=== PATIENT | male | born 1960 | race Caucasian/White ===

== ENCOUNTER 2019-08-10 10:40 | Emergency (ER) | payer OTHER ==
[~2019-08-10] VITALS: Ht 182.9 cm; Wt 120.7 kg
[2019-08-10 10:45] VITALS: Ht 182.9 cm; Wt 120.7 kg
[2019-08-10 12:48] VITALS: BP 115/66
== END 2019-08-10 12:48 | disposition left against medical advice (07) ==
LOC: ED 10:40
DX: T63.441A Toxic effect of venom of bees, accidental (unintentional), initial encounter (principal); Y92.89 Other specified places as the place of occurrence of the external cause
CPT/HCPCS: J0171; J1200; J2930; J3490; J7030; J7613; Q0092